=== PATIENT | female | born 1940 | race Caucasian/White ===

== ENCOUNTER 2021-08-07 19:01 | Emergency (ER) | payer MEDICARE, SELFPAY ==
--- NOTE | 2021-08-07 19:02 | ED.UPPEXIN ---
HPI - Extremity Injury (Upper) General Chief Complaint: Extremity Injury, Upper Stated Complaint: right hand swelling Time Seen by Provider: 08/07/21 19:02 Source: patient, family and RN notes reviewed History of Present Illness HPI narrative: Patient is a 80-year-old female who presents the urgent care with her son, with complaints of swelling in the right hand. Patient has Alzheimer's and the son does speak for the patient. Her son states that she fell and broke her shoulder approximately 1 week ago. States that she has had the sling and swath on since the fall and does have a follow-up with an orthopedic at [facility]. States that the right hand started to swell on Wednesday and started improving on Wednesday however her PCP just called her back this evening around 330. Patient does not complain of pain and therefore the son has not given her anything for pain and has not put ice on the hand. Denies of any new injuries or falls. 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 Denies of any chest pain or shortness of breath. No other acute complaints. No acute distress noted. Son aware of the plan of care. Some parts of this dictation were generated by voice recognition software and may contain typographical and/or grammatical inaccuracies. Related Data Home Medications Medication Instructions Recorded Confirmed benazepril 40 mg tablet 40 mg PO BID 08/07/21 08/07/21 diltiazem HCl 120 mg 120 mg PO DAILY 08/07/21 08/07/21 capsule,extended release 24 hr memantine 10 mg tablet 10 mg PO BID 08/07/21 08/07/21 metoprolol tartrate 25 mg tablet 25 mg PO BID 08/07/21 08/07/21 trazodone 50 mg tablet 50 mg PO HS 08/07/21 08/07/21 Review of Systems Review of Systems: CONSTITUTIONAL: Denies fever, chills, or sweats. EYES: Denies visual changes, redness, or discharge. ENT: Denies rhinorrhea, congestion, sore throat, or otalgia. CARDIOVASCULAR: Denies chest pain, palpitations, or edema. RESPIRATORY: Denies cough or dyspnea. GASTROINTESTINAL: Denies abdominal pain, nausea, vomiting, or diarrhea. GENITOURINARY: Denies dysuria or hematuria. SKIN: Denies rash or itching. MUSCULOSKELETAL: Reports of right shoulder fracture and swelling to the right hand NEUROLOGIC: Denies headache, numbness, or weakness. All other systems reviewed are negative, except as documented in HPI. PMFSH Comments At the time of my signature, I reviewed and agree with the nursing past medical, surgical, social, and family history. There is no relevant family history pertinent to the patient complaint. Exam Narrative: GENERAL: This is a well-nourished, well-developed patient, in no apparent distress. HEAD: normocephalic, atraumatic. EYES: PERRL. Sclera clear/white. Vision is grossly intact. EARS: External ears normal NOSE: External nose normal with no obvious nasal discharge, nares without redness, no rhinorrhea. THROAT: Mucous membranes moist NECK: Neck supple RESPIRATORY: Clear to auscultation. Breath sounds equal bilaterally. No wheezes, rales, or rhonchi. SKIN: warm, intact with no suspicious lesions or rash, good texture and turgor. NEURO: awake, alert, and oriented to person. There were no obvious focal neurologic abnormalities. EXTREMITIES: Sling and swath noted to the right upper extremity with positive strong right radial pulse and capillary refill less than 2 seconds. Moderate ecchymosis from the right upper shoulder covering the right upper extremity. Mild nonpitting right dorsal hand edema. of motion not tested due to pain and shoulder fracture. Course Course Level of Care: Express Care Visit Vital Signs Vital signs: Vital Signs Temperature 97.5 F L 08/07/21 19:18 Pulse Rate 65 08/07/21 19:18 Respiratory Rate 18 08/07/21 19:18 Blood Pressure 164/45 H 08/07/21 19:18 Pulse Oximetry 98 08/07/21 19:18 Oxygen Delivery Room Air 08/07/21 19:18 Temperature 97.5 F L 08/07/21 19:18 Pulse Rate 6
[2021-08-07 19:18] VITALS: BP 164/45; PULSE 65; RESP 18; TEMP 36.4; O2SAT 98
== END 2021-08-07 19:32 | disposition home or self-care (01) ==
PROVIDERS: Emergency Provider Nurse Practitioner Family; PCP Nurse Practitioner Family
DX: S42.91XA Fracture of right shoulder girdle, part unspecified, initial encounter for closed fracture (principal); W19.XXXA Unspecified fall, initial encounter; G30.9 Alzheimer's disease, unspecified; F02.80 Dementia in other diseases classified elsewhere, unspecified severity, without behavioral disturbance, psychotic disturbance, mood disturbance, and anxiety; D69.3 Immune thrombocytopenic purpura
CPT/HCPCS: 99212; G0463